=== PATIENT | male | born 1940 | race Caucasian/White ===

== ENCOUNTER 2017-11-28 09:23 | Day surgery (SDC) | payer MEDICARE ==
[~2017-11-28] VITALS: Ht 188 cm; Wt 82.6 kg
[~2017-11-28 09:23] MED LIST: ASPI81EC PO; CIME300 PO; CIME60EL PO; ETOD400 PO; HYDCHL12.5 PO; MOVE FREE PO; MULVITA PO; MULVITMIND PO; MULVITMINE PO; NAPR220 PO; OXYACE5T PO; TETR250 PO; [UNRECOGNIZED DRUG - REMARK]
== END 2017-11-28 12:58 | disposition home or self-care (01) ==
LOC: ORSCSDS 09:23
PROVIDERS: Podiatrist Foot & Ankle Surgery
PROC: 0Y6M0Z5 Detachment at Right Foot, Complete 2nd Ray, Open Approach (ICD-10-PCS; principal; 2017-11-28 11:00)
DX: M20.41 Other hammer toe(s) (acquired), right foot (principal); I10 Essential (primary) hypertension; Z79.899 Other long term (current) drug therapy
CPT/HCPCS: J0690; J2250; J2405; J7120

== ENCOUNTER → 2023-08-13 | Outpatient (CLI) | payer MEDICARE ==
[2023-08-13 11:19] LABS: BASOPHILS ABSOLUTE AUTO 0.05 K/mm3 (0.00-0.23); BASOPHILS PERCENT AUTO 1 % (0-2); EOSINOPHILS ABSOLUTE AUTO 0.26 K/mm3 (0.00-0.68); EOSINOPHILS PERCENT AUTO 4 % (0-6); Hematocrit 40.2 % (37.0-53.0); Hemoglobin 13.7 g/dL (13.5-17.5); IMMATURE GRAN ABSOLUTE AUTO 0.06 K/mm3 (0.00-0.10); IMMATURE GRAN PERCENT AUTO 1 % (0-1); LYMPHOCYTES ABSOLUTE AUTO 2.13 K/mm3 (0.84-5.20); LYMPHOCYTES PERCENT AUTO 31 % (21-46); MONOCYTES ABSOLUTE AUTO 0.77 K/mm3 (0.16-1.47); MONOCYTES PERCENT AUTO 11 % (4-13); Mean Corpuscular HGB 33.4 pg (26.0-34.0); Mean Corpuscular HGB Conc 34.1 g/dL (31.5-36.5); Mean Corpuscular Volume 98 fL (80-100); Mean Platelet Volume 9.6 fL (9.1-12.4); NEUTROPHILS ABSOLUTE AUTO 3.67 K/mm3 (1.96-9.15); NEUTROPHILS PERCENT AUTO 53 % (41-73); Platelet Count 309 K/mm3 (150-400); RDW Coefficient Variation 12.5 % (11.7-14.2); RDW Standard Deviation 45.2 fL (35.1-46.3); White Blood Cell Count 6.94 K/mm3 (4.00-11.30)
[2023-08-13 11:23] LABS: CHOL/HDL RATIO 2.9; Cholesterol 103 mg/dL (50-200); HDL Cholesterol 35 mg/dL (>39); LDL/HDL RATIO 1.6; Low Density Lipoprotein Chol 57 mg/dL (0-110); Triglycerides 55 mg/dL (30-160); Very Low Density Lipoprot Chol 11 mg/dL (6-32)
[2023-08-14 08:11] LABS: A/G RATIO 1.3 (1.2-2.2); BILIRUBIN, TOTAL 0.5 mg/dL (0.0-1.2); CREATININE, SERUM 1.01 mg/dL (0.76-1.27); GLOBULIN, TOTAL 3.1 g/dL (1.5-4.5); POTASSIUM, SERUM 4.5 mmol/L (3.5-5.2)
== END | disposition home or self-care (01) ==
LOC: LAB 10:11 → LAB SHORT 10:11
PROVIDERS: Family Medicine
DX: I10 Essential (primary) hypertension (principal); N42.9 Disorder of prostate, unspecified
CPT/HCPCS: 80053; 80061; 84153; 85025

== ENCOUNTER → 2024-02-12 | Outpatient (CLI) | payer MEDICARE ==
[2024-02-12 13:30] LABS: Alanine Aminotransfer (ALT/SGP 24 U/L (12-78); Albumin, Blood 3.3 g/dL (3.4-5.0); Albumin/Globulin Ratio 0.9 (0.8-1.8); Alk Phos 102 U/L (50-136); Anion Gap 6 mmol/L (3-11); Aspartate Aminotrans (AST/SGOT 24 U/L (12-37); BASOPHILS ABSOLUTE AUTO 0.03 K/mm3 (0.00-0.23); BASOPHILS PERCENT AUTO 0 % (0-2); Bilirubin, Total 0.6 mg/dL (0.1-1.0); Blood Urea Nitrogen 17 mg/dL (8-24); Bun/Creatinine Ratio 20.5 (12.0-20.0); CHOL/HDL RATIO 2.5; CO2, Blood 31 mmol/L (21-32); Calcium, Blood 8.9 mg/dL (8.5-10.1); Chloride, Blood 104 mmol/L (98-108); Cholesterol 86 mg/dL (50-200); Creatinine, Blood 0.83 mg/dL (0.60-1.20); EOSINOPHILS ABSOLUTE AUTO 0.19 K/mm3 (0.00-0.68); EOSINOPHILS PERCENT AUTO 3 % (0-6); Globulin, Blood 3.7 g/dL (2.2-4.0); Glomerular Filtration Rate 87 (60-); Glucose, Blood 97 mg/dL (70-99); HDL Cholesterol 35 mg/dL (>39); Hematocrit 38.1 % (37.0-53.0); Hemoglobin 12.9 g/dL (13.5-17.5); IMMATURE GRAN ABSOLUTE AUTO 0.05 K/mm3 (0.00-0.10); IMMATURE GRAN PERCENT AUTO 1 % (0-1); LDL/HDL RATIO 1.2; LYMPHOCYTES PERCENT AUTO 26 % (21-46); Low Density Lipoprotein Chol 42 mg/dL (0-110); MONOCYTES PERCENT AUTO 12 % (4-13); Mean Corpuscular HGB Conc 33.9 g/dL (31.5-36.5); Mean Corpuscular Volume 97 fL (80-100); Mean Platelet Volume 9.7 fL (9.1-12.4); NEUTROPHILS ABSOLUTE AUTO 4.04 K/mm3 (1.96-9.15); NEUTROPHILS PERCENT AUTO 59 % (41-73); Platelet Count 329 K/mm3 (150-400); Potassium, Blood 4.3 mmol/L (3.5-5.5); RDW Coefficient Variation 12.3 % (11.7-14.2); RDW Standard Deviation 43.9 fL (35.1-46.3); Red Blood Cell Count 3.91 M/mm3 (4.30-5.90); Sodium, Blood 137 mmol/L (136-145); Triglycerides 45 mg/dL (30-160); Very Low Density Lipoprot Chol 9 mg/dL (6-32); White Blood Cell Count 6.91 K/mm3 (4.00-11.30)
== END ==
LOC: LAB 11:19 → LAB SHORT 11:19
PROVIDERS: Family Medicine
DX: I10 Essential (primary) hypertension (principal)
CPT/HCPCS: 80053; 80061; 85025

== ENCOUNTER → 2024-08-13 | Outpatient (CLI) | payer MEDICARE ==
[2024-08-13 11:26] LABS: BASOPHILS ABSOLUTE AUTO 0.02 K/mm3 (0.00-0.23); BASOPHILS PERCENT AUTO 0 % (0-2); EOSINOPHILS ABSOLUTE AUTO 0.11 K/mm3 (0.00-0.68); EOSINOPHILS PERCENT AUTO 2 % (0-6); Hematocrit 38.1 % (37.0-53.0); Hemoglobin 13.3 g/dL (13.5-17.5); IMMATURE GRAN ABSOLUTE AUTO 0.04 K/mm3 (0.00-0.10); IMMATURE GRAN PERCENT AUTO 1 % (0-1); LYMPHOCYTES ABSOLUTE AUTO 1.87 K/mm3 (0.84-5.20); LYMPHOCYTES PERCENT AUTO 30 % (21-46); MONOCYTES ABSOLUTE AUTO 0.64 K/mm3 (0.16-1.47); MONOCYTES PERCENT AUTO 10 % (4-13); Mean Corpuscular HGB 33.6 pg (26.0-34.0); Mean Corpuscular HGB Conc 34.9 g/dL (31.5-36.5); Mean Corpuscular Volume 96 fL (80-100); Mean Platelet Volume 9.8 fL (9.1-12.4); NEUTROPHILS ABSOLUTE AUTO 3.53 K/mm3 (1.96-9.15); NEUTROPHILS PERCENT AUTO 57 % (41-73); Platelet Count 298 K/mm3 (150-400); RDW Coefficient Variation 12.3 % (11.7-14.2); RDW Standard Deviation 43.2 fL (35.1-46.3); Red Blood Cell Count 3.96 M/mm3 (4.30-5.90); White Blood Cell Count 6.21 K/mm3 (4.00-11.30)
[2024-08-13 11:47] LABS: Alanine Aminotransfer (ALT/SGP 21 U/L (12-78); Albumin, Blood 3.3 g/dL (3.4-5.0); Albumin/Globulin Ratio 0.9 (0.8-1.8); Alk Phos 97 U/L (50-136); Anion Gap 8 mmol/L (3-11); Aspartate Aminotrans (AST/SGOT 22 U/L (12-37); Bilirubin, Total 0.7 mg/dL (0.1-1.0); Blood Urea Nitrogen 14 mg/dL (8-24); Bun/Creatinine Ratio 16.7 (12.0-20.0); CO2, Blood 29 mmol/L (21-32); Chloride, Blood 100 mmol/L (98-108); Creatinine, Blood 0.84 mg/dL (0.60-1.20); Globulin, Blood 3.5 g/dL (2.2-4.0); Glomerular Filtration Rate 87 (60-); Glucose, Blood 110 mg/dL (70-99); Potassium, Blood 4.4 mmol/L (3.5-5.5); Sodium, Blood 133 mmol/L (136-145); Total Protein, Blood 6.8 g/dL (6.4-8.2)
== END ==
LOC: LAB 10:02 → LAB SHORT 10:02
PROVIDERS: Family Medicine
DX: I10 Essential (primary) hypertension (principal); N42.9 Disorder of prostate, unspecified
CPT/HCPCS: 80053; 84153; 85025

== ENCOUNTER → 2025-01-13 | Outpatient (CLI) | payer MEDICARE ==
[2025-01-13 12:17] LABS: BASOPHILS ABSOLUTE AUTO 0.03 K/mm3 (0.00-0.23); BASOPHILS PERCENT AUTO 1 % (0-2); EOSINOPHILS ABSOLUTE AUTO 0.14 K/mm3 (0.00-0.68); EOSINOPHILS PERCENT AUTO 2 % (0-6); Hemoglobin 12.8 g/dL (13.5-17.5); IMMATURE GRAN ABSOLUTE AUTO 0.04 K/mm3 (0.00-0.10); IMMATURE GRAN PERCENT AUTO 1 % (0-1); LYMPHOCYTES ABSOLUTE AUTO 1.65 K/mm3 (0.84-5.20); LYMPHOCYTES PERCENT AUTO 25 % (21-46); MONOCYTES ABSOLUTE AUTO 0.82 K/mm3 (0.16-1.47); MONOCYTES PERCENT AUTO 12 % (4-13); Mean Corpuscular HGB 33.3 pg (26.0-34.0); Mean Corpuscular HGB Conc 34.6 g/dL (31.5-36.5); Mean Corpuscular Volume 96 fL (80-100); Mean Platelet Volume 9.7 fL (9.1-12.4); NEUTROPHILS ABSOLUTE AUTO 3.95 K/mm3 (1.96-9.15); NEUTROPHILS PERCENT AUTO 60 % (41-73); Platelet Count 314 K/mm3 (150-400); RDW Coefficient Variation 12.3 % (11.7-14.2); RDW Standard Deviation 43.7 fL (35.1-46.3); Red Blood Cell Count 3.84 M/mm3 (4.30-5.90); White Blood Cell Count 6.63 K/mm3 (4.00-11.30)
[2025-01-13 17:15] LABS: Alanine Aminotransfer (ALT/SGP 24 U/L (12-78); Albumin, Blood 3.5 g/dL (3.4-5.0); Alk Phos 94 U/L (50-136); Anion Gap 6 mmol/L (3-11); Aspartate Aminotrans (AST/SGOT 27 U/L (12-37); Bilirubin, Total 0.7 mg/dL (0.1-1.0); Blood Urea Nitrogen 17 mg/dL (8-24); Bun/Creatinine Ratio 18.3 (12.0-20.0); CHOL/HDL RATIO 2.5; CO2, Blood 30 mmol/L (21-32); Calcium, Blood 9.1 mg/dL (8.5-10.1); Chloride, Blood 100 mmol/L (98-108); Cholesterol 101 mg/dL (50-200); Creatinine, Blood 0.93 mg/dL (0.60-1.20); Globulin, Blood 3.4 g/dL (2.2-4.0); Glomerular Filtration Rate 81 (60-); Glucose, Blood 86 mg/dL (70-99); HDL Cholesterol 40 mg/dL (>39); LDL/HDL RATIO 1.3; Low Density Lipoprotein Chol 52 mg/dL (0-110); Potassium, Blood 4.1 mmol/L (3.5-5.5); Sodium, Blood 132 mmol/L (136-145); Total Protein, Blood 6.9 g/dL (6.4-8.2); Triglycerides 47 mg/dL (30-160); Very Low Density Lipoprot Chol 9 mg/dL (6-32)
== END ==
LOC: LAB 09:51 → LAB SHORT 09:51
PROVIDERS: Family Medicine
DX: I10 Essential (primary) hypertension (principal)
CPT/HCPCS: 80053; 80061; 85025

== ENCOUNTER → 2025-07-15 | Outpatient (CLI) | payer MEDICARE ==
[2025-07-15 10:01] LABS: BASOPHILS ABSOLUTE AUTO 0.03 K/mm3 (0.00-0.23); BASOPHILS PERCENT AUTO 1 % (0-2); EOSINOPHILS ABSOLUTE AUTO 0.16 K/mm3 (0.00-0.68); EOSINOPHILS PERCENT AUTO 3 % (0-6); Hematocrit 35.1 % (37.0-53.0); Hemoglobin 11.9 g/dL (13.5-17.5); IMMATURE GRAN ABSOLUTE AUTO 0.05 K/mm3 (0.00-0.10); IMMATURE GRAN PERCENT AUTO 1 % (0-1); LYMPHOCYTES ABSOLUTE AUTO 1.60 K/mm3 (0.84-5.20); LYMPHOCYTES PERCENT AUTO 26 % (21-46); MONOCYTES ABSOLUTE AUTO 0.66 K/mm3 (0.16-1.47); MONOCYTES PERCENT AUTO 11 % (4-13); Mean Corpuscular HGB Conc 33.9 g/dL (31.5-36.5); Mean Corpuscular Volume 99 fL (80-100); NEUTROPHILS ABSOLUTE AUTO 3.62 K/mm3 (1.96-9.15); NEUTROPHILS PERCENT AUTO 59 % (41-73); NRBC ABSOLUTE 0.00 K/mm3 (0.00-0.02); NRBC Auto 0.0 /100 WBC (0.0-0.2); Platelet Count 298 K/mm3 (150-400); RDW Coefficient Variation 12.0 % (11.7-14.2); RDW Standard Deviation 44.4 fL (35.1-46.3)
[2025-07-15 10:38] LABS: Alanine Aminotransfer (ALT/SGP 24 U/L (12-78); Albumin, Blood 2.8 g/dL (3.4-5.0); Albumin/Globulin Ratio 0.7 (0.8-1.8); Anion Gap 10 mmol/L (3-11); Aspartate Aminotrans (AST/SGOT 30 U/L (12-37); Bilirubin, Total 0.7 mg/dL (0.1-1.0); Blood Urea Nitrogen 14 mg/dL (8-24); CHOL/HDL RATIO 2.4; CO2, Blood 21 mmol/L (21-32); Calcium, Blood 8.5 mg/dL (8.5-10.1); Chloride, Blood 108 mmol/L (98-108); Cholesterol 88 mg/dL (50-200); Creatinine, Blood 0.74 mg/dL (0.60-1.20); Globulin, Blood 3.8 g/dL (2.2-4.0); Glucose, Blood 93 mg/dL (70-99); HDL Cholesterol 37 mg/dL (>39); LDL/HDL RATIO 1.1; Low Density Lipoprotein Chol 42 mg/dL (0-110); Potassium, Blood 4.0 mmol/L (3.5-5.5); Prostate Specific Antigen 1.930 ng/mL (0.000-4.000); Sodium, Blood 135 mmol/L (136-145); Total Protein, Blood 6.6 g/dL (6.4-8.2); Triglycerides 45 mg/dL (30-160); Very Low Density Lipoprot Chol 9 mg/dL (6-32)
== END ==
LOC: LAB SHORT 09:00 → LAB 09:00
PROVIDERS: Family Medicine
DX: I10 Essential (primary) hypertension (principal); N42.9 Disorder of prostate, unspecified
CPT/HCPCS: 80053; 80061; 84153; 85025